=== PATIENT | female | born 1970 | race Caucasian/White ===

== ENCOUNTER → 2019-06-30 14:47 | Outpatient (BNVA) | payer OTHER, SELFPAY | PROVIDERS: Family Provider Family Medicine; PCP Family Medicine; Visit Provider Nurse Practitioner Women's Health | DX: Z01.89 Encounter for other specified special examinations (principal) ==

== ENCOUNTER → 2019-12-13 14:43 | Outpatient (BNVA) | payer OTHER, SELFPAY | PROVIDERS: Family Provider Family Medicine; PCP Family Medicine; Visit Provider Internal Medicine Rheumatology | DX: M35.9 Systemic involvement of connective tissue, unspecified (principal); Z79.899 Other long term (current) drug therapy; M25.50 Pain in unspecified joint; L65.9 Nonscarring hair loss, unspecified | CPT/HCPCS: 36415; 80076; 81001; 82565; 85025; 85651; 86140; 99213 ==

== ENCOUNTER 2019-12-16 07:11 | Outpatient (CLI) | payer OTHER, SELFPAY ==
--- NOTE | 2019-12-16 07:19 | MM_ITS ---
WS: [id number] Bilateral screening digital mammogram, 12/16/2019 Clinical Data: SCREENING Comparison: 10/13/2018, 09/30/2017, 09/23/2016, 09/12/2015, 09/04/2014, 08/29/2013, 08/26/2012, 06/05/2011, 06/05. Findings: The breast parenchymal pattern shows extreme density No spiculated masses or clustered calcifications are seen. There are no secondary signs of carcinoma. MM/[place] [id number] Impression: 1. Negative bilateral mammogram unchanged. 2. Recommend annual screening mammograms. BIRADS: 1-Negative FOLLOW UP: 1 Year Follow-up The CAD coloring checker was used.
== END 2019-12-16 07:12 | disposition home or self-care (01) ==
LOC: RADSHAW 07:13
PROVIDERS: PCP Family Medicine; Visit Provider Nurse Practitioner Women's Health
DX: Z12.31 Encounter for screening mammogram for malignant neoplasm of breast (principal)
CPT/HCPCS: 77067

== ENCOUNTER → 2020-06-05 14:09 | Outpatient (BNVA) | payer OTHER, SELFPAY | PROVIDERS: PCP Family Medicine; Visit Provider Internal Medicine Rheumatology | DX: M35.9 Systemic involvement of connective tissue, unspecified (principal); Z79.899 Other long term (current) drug therapy; L65.9 Nonscarring hair loss, unspecified; M19.90 Unspecified osteoarthritis, unspecified site | CPT/HCPCS: 99214 ==

== ENCOUNTER 2020-12-03 07:19 | Outpatient (CLI) | payer OTHER, SELFPAY ==
[2020-12-03 07:35] LABS: Basophils # 0.1 10^3/uL (0.0-0.1); Basophils % 1.1 %; Eosinophils # 0.1 10^3/uL (0.0-0.8); Hematocrit 40.5 % (37.0-47.0); Hemoglobin 13.3 g/dL (11.5-15.3); Lymphocytes # 2.2 10^3/uL (0.8-4.8); Lymphocytes % 31.5 %; Mean Corpuscular HGB Conc 32.8 g/dL (30.0-36.0); Mean Corpuscular Hemoglobin 29.7 pg (28.0-34.0); Mean Corpuscular Volume 90.4 fL (81-99); Mean Platelet Volume 11.6 fL (7.4-10.4); Monocytes # 0.4 10^3/uL (0.2-0.9); Monocytes % 6.1 %; Neutrophils # 4.24 10^3/uL (1.8-7.7); Nucleated Red Blood Cells % 0 %; Platelet Count 211 10^3/cmm (130-400); Red Blood Count 4.48 10^6/uL (4.1-5.3); Red Cell Distribution Width 11.9 % (12.1-15.1); White Blood Count 7.1 10^3/uL (4.0-10.0)
[2020-12-03 07:52] LABS: Alanine Aminotransferase 9 U/L (0-33); Albumin Level 4.4 g/dL (3.5-5.2); Alkaline Phosphatase 39 IU/L (35-105); Aspartate Amino Transferase 16 U/L (0-32); Globulin 2.6 g/dL (1.3-4.6); Glomerular Filtration Rate 76.2 mL/min (90-130); Total Bilirubin 0.8 mg/dL (0.15-1.2)
== END 2020-12-03 07:20 | disposition home or self-care (01) ==
PROVIDERS: PCP Family Medicine; Visit Provider Internal Medicine Rheumatology
DX: M35.9 Systemic involvement of connective tissue, unspecified (principal); Z79.899 Other long term (current) drug therapy
CPT/HCPCS: 36415; 80076; 82565; 85025

== ENCOUNTER → 2021-04-22 08:44 | Outpatient (BNVA) | payer OTHER, SELFPAY | PROVIDERS: PCP Family Medicine; Visit Provider Nurse Practitioner Family | DX: M25.512 Pain in left shoulder (principal) | CPT/HCPCS: 73030 ==

== ENCOUNTER 2021-06-04 08:08 | Outpatient (CLI) | payer OTHER, SELFPAY ==
--- NOTE | 2021-06-04 08:17 | MM_ITS ---
WS: [id number] BILATERAL DIGITAL SCREENING MAMMOGRAPHY WITH CAD CLINICAL INFORMATION: SCREENING HISTORY: Screening mammogram. No current complaints. COMPARISON: December 16, 2019 TECHNIQUE: Bilateral CC and MLO views. FINDINGS: The breasts are composed of heterogeneous fibroglandular density tissue, which can limit the detectio n of small underlying mass lesions. Incidental punctate and lucent centered calcifications. 8 mm ovoi d nodule inner quadrant right breast appears new from previous. This is only well visualized on the c c view. Recommend spot compression views and ultrasound for further evaluation. Left breast appears unchanged and unremarkable. MM/[place] [id number] IMPRESSION: BI-RADS: 0-Incomplete: Need additional imaging evaluation FOLLOW UP: Need Additional Imaging RECOMMEND RIGHT DIAGNOSTIC MAMMOGRAPHY WITH SPOT COMPRESSION VIEWS AND ULTRASOU ND FOR FURTHER EVALUATION
[2021-06-04 15:42] LABS: Basophils # 0.1 10^3/uL (0.0-0.1); Basophils % 0.9 %; Eosinophils # 0.1 10^3/uL (0.0-0.8); Eosinophils % 1.3 %; Hematocrit 41.7 % (37.0-47.0); Hemoglobin 13.7 g/dL (11.5-15.3); Lymphocytes # 2.7 10^3/uL (0.8-4.8); Lymphocytes % 39.1 %; Mean Corpuscular HGB Conc 32.9 g/dL (30.0-36.0); Mean Corpuscular Hemoglobin 29.7 pg (28.0-34.0); Mean Corpuscular Volume 90.5 fl (81-99); Mean Platelet Volume 11.7 fL (7.4-10.4); Monocytes # 0.5 10^3/uL (0.2-0.9); Monocytes % 7.7 %; Neutrophils # 3.43 10^3/uL (1.8-7.7); Neutrophils % 50.6 %; Nucleated Red Blood Cells % 0 %; Platelet Count 220 10^3/cmm (130-400); Red Blood Count 4.61 10^6/uL (4.1-5.3); White Blood Count 6.8 10^3/uL (4.0-10.0)
[2021-06-04 16:41] LABS: Alanine Aminotransferase 11 U/L (0-33); Albumin Level 4.6 g/dL (3.5-5.2); Alkaline Phosphatase 59 IU/L (35-105); Aspartate Amino Transferase 17 U/L (0-32); C Reactive Protein 0.8 mg/L (0.0-4.9); Globulin 2.8 g/dL (1.3-4.6); Glomerular Filtration Rate 88.6 mL/min (90-130); Total Bilirubin 0.3 mg/dL (0.15-1.2); Total Protein 7.4 g/dL (6.6-8.7)
== END 2021-06-04 08:09 | disposition home or self-care (01) ==
PROVIDERS: PCP Family Medicine; Referring Provider Internal Medicine Rheumatology; Visit Provider Family Medicine
DX: Z12.31 Encounter for screening mammogram for malignant neoplasm of breast (principal); M35.9 Systemic involvement of connective tissue, unspecified; Z79.899 Other long term (current) drug therapy
CPT/HCPCS: 36415; 77067; 80076; 82565; 85025; 86140

== ENCOUNTER 2021-06-13 07:24 | Outpatient (CLI) | payer OTHER, SELFPAY ==
--- NOTE | 2021-06-13 07:31 | US_ITS ---
WS: [id number] RIGHT DIGITAL MAMMOGRAPHY WITH CAD CLINICAL INFORMATION: INCONCLUSIVE MAMMOGRAM COMPARISON: June 04, 2021 TECHNIQUE: 3 views of the right breast were obtained. FINDINGS: Scattered fibroglandular densities of the right breast. 8 mm ovoid nodule quadrant RIGHT breast parti ally compresses out on the spot compression views. Ultrasound is pending. ULTRASOUND BREAST RIGHT TECHNIQUE: Ultrasound right breast focused area of concern. CLINICAL INFORMATION: INCONCLUSIVE MAMMOGRAM FINDINGS: Ultrasound RIGHT breast demonstrates simple breast cysts at the 12:00 and 1:00 positions. Simple Cyst at the 1:00 position measures 8 x 7 x 4 mm and the 12:00 position measures 6 x 5 x 4 mm. Findings ar e benign. Recommend return to annual screening mammography. US/US breast RT limited* [id number] IMPRESSION: BI-RADS: 2-Benign FOLLOW UP: 1 Year Follow-up Recommend return to annual screening mammography.
== END 2021-06-13 07:25 | disposition home or self-care (01) ==
LOC: RADSHAW 07:27
PROVIDERS: PCP Family Medicine; Visit Provider Family Medicine
DX: R92.2 Inconclusive mammogram (principal); N60.01 Solitary cyst of right breast
CPT/HCPCS: 76642; 77065

== ENCOUNTER 2021-08-07 08:18 | Outpatient (CLI) | payer OTHER, SELFPAY ==
--- NOTE | 2021-08-07 08:33 | MR_ITS ---
WS: [id number] MRI LEFT SHOULDER HISTORY: M25.512 - Pain in left shoulder COMPARISON: None available. TECHNIQUE: Multiplanar sequences of the shoulder joint are submitted. Mild AC joint narrowing. Small amount of fluid along the AC ligament. Small osteophytes encroach upon the myotendinous site of the supraspinatus from the clavicle. No significant subacromial impingement . No subacromial or subdeltoid bursal fluid. Biceps tendon is normal position. No os acromion. No definite rotator cuff tears are identified. There is mild increased signal in the distal supraspin atus tendon. Tiny insertion site tear is not excluded but thought to be tendinopathy. No muscle retra ction or edema or atrophy. No labral tear identified. There is a small amount of fluid in the subscap ularis recess. MR/MR shoulder LT wo con* [id number] IMPRESSION: 1. Mild AC ligament sprain and mild degenerative changes at the AC joint. 2. Mild tendinopathy supraspinatus with no appreciable tear. Very tiny inserti on site tear not completely excluded.
== END 2021-08-07 08:19 | disposition home or self-care (01) ==
PROVIDERS: PCP Family Medicine; Visit Provider Nurse Practitioner Family
DX: M25.512 Pain in left shoulder (principal); G89.29 Other chronic pain
CPT/HCPCS: 73221

== ENCOUNTER 2021-08-20 06:00 | Outpatient (RCR) | payer OTHER, SELFPAY | END 2021-08-31 23:59 | disposition home or self-care (01) | LOC: SPT 06:00 | PROVIDERS: PCP Family Medicine; Referring Provider Nurse Practitioner Family; Visit Provider Nurse Practitioner Family | DX: M25.512 Pain in left shoulder (principal); G89.29 Other chronic pain | CPT/HCPCS: 97110; 97161 ==

== ENCOUNTER 2021-09-01 06:00 | Outpatient (RCR) | payer OTHER, SELFPAY | END 2021-09-26 23:59 | disposition home or self-care (01) | LOC: SPT 06:00 | PROVIDERS: PCP Family Medicine; Referring Provider Nurse Practitioner Family; Visit Provider Nurse Practitioner Family | DX: G89.29 Other chronic pain (principal); M25.512 Pain in left shoulder | CPT/HCPCS: 97110 ==

== ENCOUNTER → 2021-11-20 11:03 | Outpatient (BNVA) | payer OTHER, SELFPAY | PROVIDERS: PCP Family Medicine; Visit Provider Nurse Practitioner Women's Health | DX: Z01.419 Encounter for gynecological examination (general) (routine) without abnormal findings (principal) | CPT/HCPCS: 87624 ==

== ENCOUNTER 2021-11-21 07:31 | Day surgery (SDC) | payer OTHER, SELFPAY ==
[2021-11-21 08:05] VITALS: BP 136/72; PULSE 59; RESP 18; TEMP 36.8; O2SAT 95
[2021-11-21] MEDS: sodium chloride 0.9% 1,000 ML 30 ML IV (08:18)
[2021-11-21 08:58] LABS: OR HCG Qualitative Urine Negative (Negative)
--- NOTE | 2021-11-21 09:33 | P.HP_ITS ---
Providers/Chief Complaint Primary Care Provider: Edgard Hinson MD Chief Complaint: Need for screening colonoscopy History of Present Illness Cyndi Victor is a 51 year old female who presents for a screening colonoscopy. She denies any abdominal complaints. Denies hematochezia or melena. Review of Systems General: Reports: 10 or more systems reviewed and unremarkable except in HPI and below Medications/Allergies Home Medications Medication Instructions Recorded Confirmed Last Taken Type cholecalciferol (vitamin D3) 125 125 mcg PO DAILY 06/05/20 11/21/21 11/20/21 History mcg (5,000 unit) capsule hydroxychloroquine 200 mg tablet 200 mg PO DAILY #90 tab 06/04/21 11/21/21 11/20/21 Rx prednisone 10 mg tablet See Rx Instructions PO .COMPLEX 06/04/21 11/21/21 10/02/21 Rx PRN #30 tab Allergies Allergy/AdvReac Type Severity Reaction Status Date / Time aspirin Allergy Intermediate hives Verified 11/20/21 10:20 [From [facility]] NSAIDS (Non-Steroidal Allergy Intermediate hives Verified 11/20/21 10:20 Anti-Inflamma ibuprofen Allergy hives Verified 11/20/21 10:20 PFSH Acute PFSH: Medical History Alopecia High risk medication use Inflammatory arthritis Joint pain No pertinent past medical history neghx: htn,dm,thyroid,dvt/pe PCP: Dr. Hinson Systemic involvement of connective tissue, unspecified Dr. Babcock Undifferentiated connective tissue disease Surgical History H/O tubal ligation (~2008) History of rectal abscess (~1994) Family History Family/Other Heart disease Paternal uncle Breast cancer Maternal Aunt--dx age 48 Colon cancer Paternal Uncle--- dx age 50's Father Hyperlipidemia Heart disease Hypertension Denies family history of Ovarian cancer Diabetes Uterine cancer Thyroid disease Stroke Vitals/I&O/Wt Last Vital Signs Temp 98.3 F 11/21/21 08:05 Pulse 59 L 11/21/21 08:05 Resp 18 11/21/21 08:05 BP 136/72 11/21/21 08:05 Pulse Ox 95 11/21/21 08:05 Weight last 48 hrs Weight 125 lb Physical Exam Narrative: General : Patient is well developed , no acute distress, oriented x3 Head : Normal cephalic, a-traumatic. Ears : Pinnae and external canal are normal. Hearing is normal. Eyes : PERRLA, Sclera and injection are normal. No conjunctival discharge. Nose : Mucous membranes are without erythema. Throat : buccal mucosa is normal, gums are without significant recession or hypertrophy. Lungs : Equal chest rise bilaterally, no use of accessory muscles, trachea is midline. Cor : Rate and rhythm are normal. Abdomen : Soft, ND, NT, no g/r/m Extremities : No edema, no cyanosis or clubbing, dorsalis pedis pulses are present bilaterally, non-tender to palpation of calves. Upper extremities are normal bilaterally. Back : non-tender to palpation, no CVA tenderness. Neuro : CN II - XII intact, Upper and lower extremities have equal and full strength A&P Assessment and plan (1) Colon cancer screening: Status: Acute Plan Colonoscopy The risks and benefits of the procedure, including bleeding, infection, intestinal perforation requiring surgery, missed lesion, or explained to the patient. He is understanding of the risks and wishes to proceed. Attestations Medical Necessity Statement*: Patient will be discharged home after procedure Coding Level of Care Code Acute Alcohol Rubber for Yun Sotelo Diagnoses Colon cancer screening Z12.11
--- NOTE | 2021-11-21 09:44 | P.ANESASSM_ITS ---
Pre-Anesthetic Assessment Height/Weight: Height 1.69 m Weight 56.699 kg Temp Pulse Resp BP Pulse Ox 98.3 F 59 L 18 136/72 95 11/21/21 08:05 11/21/21 08:05 11/21/21 08:05 11/21/21 08:05 11/21/21 08:05 Operation Date: 11/21/21 09:15 Proposed Procedures p Colonoscopy [id number],Z12.11(Not Applicable) - Brendan Whitley DO Familial anesthetic complications: none Was Beta Checo taken within 24 hours: N/A Was Clonidine taken within 24 hours: N/A Last intake: Intake Last Liquid Date 11/20/21 Last Liquid Time 21:00 Last Solid Date 11/19/21 Last Solid Time 21:00 Social No alcohol and No tobacco Exam alert, oriented x 3, clear to auscultation bilaterally and regular rate & rhythm Airway Submandibular: within normal limits Cervical ROM: within normal limits Mallampati: Class II Dentition: full Metabolic chronic steroids Musc/skel Inflammatory connective tissue disorder Anesthetic Plan ASA status: 2 Anesthesia: MAC Medications/Allergies Home Medications Medication Instructions Recorded Confirmed Last Taken Type cholecalciferol (vitamin D3) 125 125 mcg PO DAILY 06/05/20 11/21/21 11/20/21 History mcg (5,000 unit) capsule hydroxychloroquine 200 mg tablet 200 mg PO DAILY #90 tab 06/04/21 11/21/21 11/20/21 Rx prednisone 10 mg tablet See Rx Instructions PO .COMPLEX 06/04/21 11/21/21 10/02/21 Rx PRN #30 tab Allergies Allergy/AdvReac Type Severity Reaction Status Date / Time aspirin Allergy Intermediate hives Verified 11/20/21 10:20 [From [facility]] NSAIDS (Non-Steroidal Allergy Intermediate hives Verified 11/20/21 10:20 Anti-Inflamma ibuprofen Allergy hives Verified 11/20/21 10:20 Current Medications Generic Name Dose Route Start Last Admin Trade Name Freq PRN Reason Stop Dose Admin Sodium Chloride 1,000 mls @ 30 mls/hr 11/21/21 07:45 11/21/21 08:18 Sodium Chloride 0.9% IV 11/22/21 07:44 30 mls/hr .Q24H SYMONE Administration PFSH Anesthesia Medical History Alopecia High risk medication use Inflammatory arthritis Joint pain No pertinent past medical history neghx: htn,dm,thyroid,dvt/pe PCP: Dr. Hinson Systemic involvement of connective tissue, unspecified Dr. Babcock Undifferentiated connective tissue disease Surgical History H/O tubal ligation (~2008) History of rectal abscess (~1994) Family History Family/Other Heart disease Paternal uncle Breast cancer Maternal Aunt--dx age 48 Colon cancer Paternal Uncle--- dx age 50's Father Hyperlipidemia Heart disease Hypertension Denies family history of Ovarian cancer Diabetes Uterine cancer Thyroid disease Stroke Data Anesthesia Cardiac Studies: No Data to Display
[2021-11-21 10:40] VITALS: BP 105/64; PULSE 73; RESP 18; TEMP 36.1; O2SAT 100
[2021-11-21 10:54] VITALS: BP 119/64; PULSE 78; RESP 18; TEMP 36.6; O2SAT 99
--- NOTE | 2021-11-21 16:15 | ANE.PACU2 ---
Inpatient post-anesthesia follow up: Airway intact: Yes Vital signs: Temperature 98 F Pulse Rate 78 Respiratory Rate 18 Blood Pressure 119/64 Pulse Oximetry 99 Oxygen Delivery Me thod Room Air Oxygen Flow Rate Fraction of Inspir ed Oxygen Hydration adequate: Yes Nausea and vomiting: No Pain level: 1 Mental status: Baseline
== END 2021-11-21 11:06 | disposition home or self-care (01) ==
PROVIDERS: Anesthesiology; PCP Family Medicine; Visit Provider Surgery
PROC: 0DJD8ZZ Inspection of Lower Intestinal Tract, Via Natural or Artificial Opening Endoscopic (ICD-10-PCS; CPT 45378; principal; 2021-11-21 09:15)
DX: Z12.11 Encounter for screening for malignant neoplasm of colon (principal); Z79.52 Long term (current) use of systemic steroids
CPT/HCPCS: 45378; 84703; J2704; J7030

== ENCOUNTER → 2022-01-12 13:23 | Outpatient (BNVA) | payer OTHER, SELFPAY | PROVIDERS: PCP Family Medicine; Visit Provider Nurse Practitioner | DX: J02.9 Acute pharyngitis, unspecified (principal) | CPT/HCPCS: 87880 ==

== ENCOUNTER → 2022-02-17 08:54 | Outpatient (BNVA) | payer OTHER, SELFPAY | PROVIDERS: Visit Provider Internal Medicine Rheumatology | DX: M19.90 Unspecified osteoarthritis, unspecified site (principal); M35.9 Systemic involvement of connective tissue, unspecified; Z79.899 Other long term (current) drug therapy | CPT/HCPCS: 80076; 82565; 85025; 86140 ==

== ENCOUNTER 2022-06-16 08:15 | Outpatient (CLI) | payer OTHER, SELFPAY ==
--- NOTE | 2022-06-16 08:26 | MM_ITS ---
WS: [id number] SCREENING DIGITAL TOMOSYNTHESIS MAMMOGRAM WITH CAD HISTORY: SCREENING COMPARISON: 06/04/2021, 12/16/2019 Bilateral CC and MLO with tomosynthesis views submitted. Synthetic mammography reviewed. Computer aid ed detection analyzed. Breast composition: The breasts are heterogeneously dense, which may obscure small masses. No suspici ous masses, microcalcifications or architectural distortion. Benign calcification RIGHT breast. MM/[place] [id number] IMPRESSION: BI-RADS: 2-Benign FOLLOW UP: 1 Year Follow-up
== END 2022-06-16 08:16 | disposition home or self-care (01) ==
LOC: RAD 08:15
PROVIDERS: PCP Family Medicine; Visit Provider Family Medicine
DX: Z12.31 Encounter for screening mammogram for malignant neoplasm of breast (principal)
CPT/HCPCS: 77063; 77067

== ENCOUNTER → 2022-12-03 13:54 | Outpatient (BNVA) | payer OTHER, SELFPAY | PROVIDERS: PCP Family Medicine; Visit Provider Internal Medicine Rheumatology | DX: M35.9 Systemic involvement of connective tissue, unspecified (principal); Z79.899 Other long term (current) drug therapy; Z11.59 Encounter for screening for other viral diseases | CPT/HCPCS: 80076; 82565; 85025; 86140; 86200; 86431; 86803 ==

== ENCOUNTER → 2023-04-08 13:35 | Outpatient (BNVA) | payer OTHER, SELFPAY | PROVIDERS: PCP Family Medicine; Visit Provider Internal Medicine Rheumatology | DX: M35.9 Systemic involvement of connective tissue, unspecified (principal); M19.90 Unspecified osteoarthritis, unspecified site | CPT/HCPCS: 36415; 80076; 82565; 85025; 86140 ==

== ENCOUNTER 2023-06-24 08:04 | Outpatient (CLI) | payer OTHER, SELFPAY ==
--- NOTE | 2023-06-24 08:07 | MM_ITS ---
WS: [id number] BILATERAL SCREENING DIGITAL TOMOSYNTHESIS MAMMOGRAM WITH CAD HISTORY: SCREENING COMPARISON: 06/16/2022, 06/04/2021, 12/16/2019 Bilateral CC and MLO views with tomosynthesis and synthetic mammography submitted. Computer aided det ection analyzed. Breast composition: The breasts are heterogeneously dense, which may obscure small masses. No suspici ous masses, microcalcifications or architectural distortion. Scattered asymmetries are stable or impr oving since 2019. IMPRESSION: MM/[place] [id number] BI-RADS: 2-Benign FOLLOW UP: 1 Year Follow-up
== END 2023-06-24 08:05 | disposition home or self-care (01) ==
LOC: RAD 08:04
PROVIDERS: PCP Family Medicine; Visit Provider Nurse Practitioner Women's Health
DX: Z12.11 Encounter for screening for malignant neoplasm of colon (principal); R92.333 Mammographic heterogeneous density, bilateral breasts
CPT/HCPCS: 77063; 77067

== ENCOUNTER 2023-07-08 08:34 | Outpatient (CLI) | payer OTHER, SELFPAY ==
[2023-07-08 09:15] LABS: Basophils % 0.8 %; Eosinophils % 0.8 %; Lymphocytes % 38.2 %; Mean Corpuscular HGB Conc 32.8 g/dL (30-55); Mean Corpuscular Volume 91.5 fl (85-98); Monocytes # 0.3 10^3/uL (0.2-0.9); Monocytes % 6.4 %; Neutrophils # 2.78 10^3/uL (1.8-7.7); Neutrophils % 53.6 %; Nucleated Red Blood Cells % 0 %; Platelet Count 225 10^3/cmm (157-399); Red Blood Count 4.37 10^6/uL (3.85-5.65); Red Cell Distribution Width 12.2 % (12.1-15.1); White Blood Count 5.18 10^3/uL (3.29-11.43)
[2023-07-08 09:40] LABS: Alanine Aminotransferase 17 U/L (0-33); Albumin Level 4.5 g/dL (3.5-5.2); Alkaline Phosphatase 89 U/L (35-105); Aspartate Amino Transferase 25 U/L (0-32); Globulin 2.6 g/dL (1.3-4.6); Glomerular Filtration Rate 75.3 mL/min (90-130); Total Bilirubin 0.5 mg/dL (0.15-1.2); Total Protein 7.1 g/dL (6.6-8.7)
== END 2023-07-08 08:35 | disposition home or self-care (01) ==
LOC: LAB 08:36
PROVIDERS: PCP Family Medicine; Visit Provider Internal Medicine Rheumatology
DX: M35.9 Systemic involvement of connective tissue, unspecified (principal); M19.90 Unspecified osteoarthritis, unspecified site
CPT/HCPCS: 80076; 82565; 85025; 86140

== ENCOUNTER 2024-01-14 07:02 | Outpatient (CLI) | payer OTHER, SELFPAY ==
[2024-01-14 07:37] LABS: Basophils % 0.6 %; Eosinophils # 0.1 10^3/uL (0.0-0.8); Eosinophils % 1.1 %; Hematocrit 37.6 % (36-47); Lymphocytes # 2.2 10^3/uL (0.8-4.8); Lymphocytes % 41.1 %; Mean Corpuscular Hemoglobin 30.9 pg (27-33); Mean Corpuscular Volume 93.8 fl (85-98); Mean Platelet Volume 11.1 fL (7.4-10.4); Monocytes # 0.4 10^3/uL (0.2-0.9); Monocytes % 7.2 %; Neutrophils # 2.61 10^3/uL (1.8-7.7); Neutrophils % 49.8 %; Nucleated Red Blood Cells % 0 %; Platelet Count 259 10^3/cmm (157-399); Red Blood Count 4.01 10^6/uL (3.85-5.65); Red Cell Distribution Width 12.8 % (12.1-15.1); White Blood Count 5.25 10^3/uL (3.29-11.43)
[2024-01-14 07:39] LABS: Alanine Aminotransferase 15 U/L (0-33); Albumin Level 4.5 g/dL (3.5-5.2); Alkaline Phosphatase 88 U/L (35-105); Aspartate Amino Transferase 24 U/L (0-32); Globulin 2.5 g/dL (1.3-4.6); Glomerular Filtration Rate 75.3 mL/min (90-130); Total Bilirubin 0.5 mg/dL (0.15-1.2)
[2024-01-14 07:54] LABS: 25 Hydroxy Vitamin D 49 ng/mL (30-100)
== END 2024-01-14 07:03 | disposition home or self-care (01) ==
PROVIDERS: PCP Family Medicine; Visit Provider Internal Medicine Rheumatology
DX: Z79.899 Other long term (current) drug therapy (principal); M35.9 Systemic involvement of connective tissue, unspecified; M19.90 Unspecified osteoarthritis, unspecified site
CPT/HCPCS: 36415; 80076; 82306; 82565; 85025; 86140

== ENCOUNTER → 2024-03-23 14:56 | Outpatient (BNVA) | payer OTHER, SELFPAY | PROVIDERS: PCP Family Medicine; Visit Provider Nurse Practitioner Women's Health | DX: N95.0 Postmenopausal bleeding (principal) | CPT/HCPCS: 76830 ==

== ENCOUNTER 2024-06-01 07:22 | Outpatient (CLI) | payer OTHER, SELFPAY ==
[2024-06-01 07:42] LABS: Basophils % 0.8 %; Eosinophils # 0.1 10^3/uL (0.0-0.8); Eosinophils % 2.1 %; Hematocrit 39.6 % (36-47); Lymphocytes # 1.9 10^3/uL (0.8-4.8); Lymphocytes % 40.5 %; Mean Corpuscular HGB Conc 32.6 g/dL (30-55); Mean Corpuscular Hemoglobin 30.1 pg (27-33); Mean Corpuscular Volume 92.5 fl (85-98); Mean Platelet Volume 11.2 fL (7.4-10.4); Monocytes # 0.4 10^3/uL (0.2-0.9); Monocytes % 8.9 %; Neutrophils # 2.25 10^3/uL (1.8-7.7); Neutrophils % 47.5 %; Nucleated Red Blood Cells % 0 %; Platelet Count 200 10^3/cmm (157-399); Red Blood Count 4.28 10^6/uL (3.85-5.65); White Blood Count 4.74 10^3/uL (3.29-11.43)
[2024-06-01 07:59] LABS: Alanine Aminotransferase 14 U/L (0-33); Albumin Level 4.4 g/dL (3.5-5.2); Alkaline Phosphatase 63 U/L (35-105); Aspartate Amino Transferase 21 U/L (0-32); Globulin 2.5 g/dL (1.3-4.6); Glomerular Filtration Rate 87.5 mL/min (90-130); Total Bilirubin 0.4 mg/dL (0.15-1.2); Total Protein 6.9 g/dL (6.6-8.7)
[2024-06-01 08:52] LABS: Erythrocyte Sedimentation Rate 1 mm/hr (0-15)
== END 2024-06-01 07:23 | disposition home or self-care (01) ==
PROVIDERS: Internal Medicine Rheumatology; PCP Family Medicine; Visit Provider Family Medicine
DX: M35.9 Systemic involvement of connective tissue, unspecified (principal); M19.90 Unspecified osteoarthritis, unspecified site; Z79.899 Other long term (current) drug therapy
CPT/HCPCS: 36415; 80076; 82565; 85025; 85651; 86140

== ENCOUNTER 2024-06-15 09:29 | Outpatient (CLI) | payer OTHER, SELFPAY ==
--- NOTE | 2024-06-15 09:58 | XR_ITS ---
WS: [id number] XR lumbar spine min 4V [id number] REASON FOR EXAM: dorsalgia FINDINGS: Mild rotatory dextroscoliosis. Normal lumbar lordosis. No vertebral body compression deformity or focal vertebral body lesion noted. Minimal endplate sclerosis with minimal osteophytosis at L1-L2 and L3-L4. Intervertebral disc spaces are intact and relatively well preserved. No spondylolysis. No significant spondylolisthesis. No abnormal vertebral body movement with flexion or extension. The perceived outline of the liver suggests hepatomegaly. XR/XR lumbar spine min 4V [id number] IMPRESSION: Minimal degenerative spondylosis. Potential hepatomegaly. Ultrasound of the liver to be considered if clinically warranted.
== END 2024-06-15 09:30 | disposition home or self-care (01) ==
PROVIDERS: PCP Family Medicine; Visit Provider Family Medicine
DX: M41.86 Other forms of scoliosis, lumbar region (principal); R93.2 Abnormal findings on diagnostic imaging of liver and biliary tract
CPT/HCPCS: 72110

== ENCOUNTER 2024-06-29 10:08 | Outpatient (CLI) | payer OTHER, SELFPAY ==
--- NOTE | 2024-06-29 10:17 | MM_ITS ---
WS: [id number] Bilateral screening 3D tomosynthesis digital mammogram, 06/29/2024 10:17 AM Clinical Data: SCREENING Comparison: 06/24/2023, 06/16/2022, 06/13/2021, 06/04/2021, 12/16/2019, 10/13/2018, 09/30/2017, 09/23/2016, 09/12/2015, 09/04/2014, 08/29/2013, 08/26/2012, 06/05/2011, 06/05/2006. Findings: No spiculated masses or clustered calcifications are seen. There are no secondary signs of carcinoma. MM/MM scr BI tomosynthesis [id number] Impression: Negative bilateral mammogram unchanged. Recommend annual screening mammograms. BIRADS: 1 - Negative FOLLOW UP: 1 Year Follow-up DENSITY: The breasts are heterogeneously dense, which may obscure small masses. The CAD unloading checker was used
== END 2024-06-29 10:09 | disposition home or self-care (01) ==
PROVIDERS: PCP Family Medicine; Visit Provider Nurse Practitioner Women's Health
DX: Z12.31 Encounter for screening mammogram for malignant neoplasm of breast (principal); R92.333 Mammographic heterogeneous density, bilateral breasts
CPT/HCPCS: 77063; 77067

== ENCOUNTER 2024-06-29 12:46 | Outpatient (RCR) | payer OTHER, SELFPAY | END 2024-07-01 23:59 | disposition home or self-care (01) | LOC: SPT 12:46 | PROVIDERS: PCP Family Medicine; Visit Provider Family Medicine | DX: M54.50 Low back pain, unspecified (principal) | CPT/HCPCS: 97161; G0283 ==

== ENCOUNTER 2024-07-02 06:00 | Outpatient (RCR) | payer OTHER, SELFPAY | END 2024-08-01 23:59 | disposition home or self-care (01) | LOC: SPT 06:00 | PROVIDERS: PCP Family Medicine; Visit Provider Family Medicine | DX: M54.50 Low back pain, unspecified (principal) | CPT/HCPCS: 97110; 97140; G0283 ==

== ENCOUNTER 2024-07-27 13:52 | Outpatient (CLI) | payer OTHER, SELFPAY ==
--- NOTE | 2024-07-27 14:00 | MR_ITS ---
WS: [id number] MRI LUMBAR SPINE NONCONTRAST HISTORY: LUMBAGO W/SCIATICA COMPARISON: None available. TECHNIQUE: Sagittal and axial multisequence imaging is submitted. Normal lumbar alignment with no compression fractures or marrow edema. Disc spaces and vertebral body heights are well-preserved. Conus terminates normally at L1-2 disc level. L1-L2: Normal. L2-L3: Very shallow LEFT foraminal disc protrusion. No stenosis. L3-L4: Mild ligamentum flavum and facet arthritis. Very mild foraminal stenosis. L4-L5: Moderate ligamentum flavum and facet arthritis. Mild foraminal stenosis, LEFT greater than RIGHT. L5-S1: Mild annular disc bulging with disc encroaching upon the S1 nerve roots, RIGHT greater than LEFT. Bilateral foraminal disc protrusions, RIGHT greater than LEFT. There is significant contact on the RIGHT exiting L5 nerve root. Lesser contact on the LEFT exiting L5 nerve root. MR/MR lumbar spine wo con* [id number] IMPRESSION: 1. Bilateral foraminal disc protrusions at L5-S1, RIGHT greater than LEFT. Sig nificant contact on the exiting L5 nerve roots, RIGHT greater than LEFT. 2. Mild foraminal stenosis at L4-5, LEFT greater than RIGHT. 3. No lumbar spine fracture.
== END 2024-07-27 13:53 | disposition home or self-care (01) ==
PROVIDERS: PCP Family Medicine; Visit Provider Family Medicine
DX: M54.41 Lumbago with sciatica, right side (principal); M51.27 Other intervertebral disc displacement, lumbosacral region; R93.7 Abnormal findings on diagnostic imaging of other parts of musculoskeletal system; M48.061 Spinal stenosis, lumbar region without neurogenic claudication; M24.28 Disorder of ligament, vertebrae; M47.896 Other spondylosis, lumbar region; M51.379 Other intervertebral disc degeneration, lumbosacral region without mention of lumbar back pain or lower extremity pain
CPT/HCPCS: 72148

== ENCOUNTER 2024-08-02 05:00 | Outpatient (RCR) | payer OTHER, SELFPAY | END 2024-08-25 10:13 | disposition home or self-care (01) | LOC: SPT 05:00 | PROVIDERS: PCP Family Medicine; Visit Provider Family Medicine | DX: M54.50 Low back pain, unspecified (principal) | CPT/HCPCS: 97110; 97140; G0283 ==

== ENCOUNTER → 2024-10-12 14:10 | Outpatient (BNVA) | payer OTHER, SELFPAY | PROVIDERS: PCP Family Medicine; Visit Provider Internal Medicine Rheumatology | DX: Z79.899 Other long term (current) drug therapy (principal) | CPT/HCPCS: 36415; 80076; 82306; 82565; 83520; 85025; 85651; 86140; 86480 ==

== ENCOUNTER → 2024-12-21 10:37 | Outpatient (BNVA) | payer OTHER, SELFPAY | PROVIDERS: PCP Family Medicine; Visit Provider Nurse Practitioner Women's Health | DX: Z12.4 Encounter for screening for malignant neoplasm of cervix (principal) | CPT/HCPCS: 87624 ==

== ENCOUNTER → 2025-02-01 14:33 | Outpatient (BNVA) | payer OTHER, SELFPAY | PROVIDERS: PCP Family Medicine; Visit Provider Internal Medicine Rheumatology | DX: Z79.899 Other long term (current) drug therapy (principal) | CPT/HCPCS: 36415; 80076; 82565; 85025; 85651; 86140 ==